=== PATIENT | female | born 2000 | race African-American/Black ===

== ENCOUNTER 2022-06-07 09:37 | Emergency (ER) | payer SELFPAY ==
[~2022-06-07] VITALS: Ht 157.5 cm; Wt 80.0 kg
[2022-06-07 10:21] VITALS: BP 121/86
[2022-06-07] MEDS ORDERED: IBUPROFEN 800 MG TAB PO ONE (11:15)
[2022-06-07] MEDS ORDERED: IBUP800T27 PO (11:29)
== END 2022-06-07 11:35 | disposition home or self-care (01) ==
LOC: ER 09:37
DX: S82.64XA Nondisplaced fracture of lateral malleolus of right fibula, initial encounter for closed fracture (principal); X50.1XXA Overexertion from prolonged static or awkward postures, initial encounter; Y93.89 Activity, other specified; Y92.29 Other specified public building as the place of occurrence of the external cause; Y99.9 Unspecified external cause status
CPT/HCPCS: 29515; 73610